=== PATIENT | male | born 2000 | race African-American/Black ===

== ENCOUNTER 2022-05-13 16:33 | Emergency (ER) | payer MEDICARE, MEDICAID ==
[~2022-05-13] VITALS: Ht 162.6 cm; Wt 65.8 kg
[2022-05-13 16:37] VITALS: BP_SYST 127
--- NOTE | 2022-05-13 17:00 | NUR ---
Pt brought by sister, A&Ox4, pt presents to pain behind L knee, denies trauma , pt has Hx of autism skin pink and warm, cap refill <3, VSS, will cont to monitor.
--- NOTE | 2022-05-13 20:00 | NUR ---
PATIENT SEEN LEAVING ER WITH FAMILY MEMBER. STATED THEY WERE NO LONGER WAITING.
--- NOTE | 2022-05-13 20:01 | NUR ---
PATIENT LEFT WITHOUT BEING SEEN.
== END 2022-05-13 20:01 | disposition left against medical advice (07) ==
LOC: SED 16:33
DX: M25.562 Pain in left knee (principal); Z53.21 Procedure and treatment not carried out due to patient leaving prior to being seen by health care provider